=== PATIENT | female | born 2005 | race African-American/Black ===

== ENCOUNTER 2025-01-04 20:16 | Emergency (ER) | payer MEDICAID ==
[~2025-01-04] VITALS: Ht 157.5 cm; Wt 74.6 kg
[2025-01-04 20:22] VITALS: O2SAT 97
[2025-01-04 20:59] LABS: BASOPHILS % 0.4 % (0.0-2.0); EOSINOPHILS % 1.5 % (0.0-5.0); HEMATOCRIT. 34.3 % (36.0-48.0); HEMOGLOBIN. 11.5 g/dL (12.0-16.0); LYMPHOCYTES % 20.1 % (20.0-50.0); MEAN CORPUSCULAR HEMOGLOBIN 29.1 pg (28.0-32.0); MEAN CORPUSCULAR HGB CONC 33.5 g/dL (31.0-37.0); MEAN CORPUSCULAR VOLUME 86.9 fL (81.0-99.0); MEAN PLATELET VOLUME 7.3 fl (7.4-10.4); MONOCYTES % 5.6 % (2.0-8.0); NEUTROPHILS % 72.4 % (40.0-76.0); PLATELET 377 x1000/uL (130-400); RED BLOOD CELL COUNT 3.95 mill/uL (4.2-5.4); WHITE BLOOD COUNT 13.7 x1000/uL (4.5-11.0)
[2025-01-04 21:02] LABS: GLUCOSE URINE NEGATIVE (NEGATIVE); KETONES URINE NEGATIVE (NEGATIVE)
[2025-01-04 21:08] LABS: CHLORIDE 104 mEq/L (98-107); POTASSIUM 3.7 mEq/L (3.5-5.1); SODIUM 137 mEq/L (136-145)
[2025-01-04 21:09] LABS: CALCIUM 9.3 mg/dL (8.7-10.4); CARBON DIOXIDE 22 mEq/L (21-32)
[2025-01-04 21:13] LABS: CLARITY URINE HAZY (CLEAR); COLOR URINE YELLOW (YELLOW); LEUKOCYTE ESTERASE URINE 2+ (NEGATIVE); NITRITE URINE NEGATIVE (NEGATIVE); OCCULT BLOOD URINE 3+ (NEGATIVE); PH URINE 6.5 (4.5-8.0); PROTEIN URINE NEGATIVE (NEGATIVE); SPECIFIC GRAVITY URINE 1.015 (1.005-1.030); UROBILINOGEN URINE 0.2 E.U./dL (0.2-1.0)
[2025-01-04 21:14] LABS: CREATININE 0.7 mg/dL (0.6-1.0); GLUCOSE 138 mg/dL (70-105); UREA NITROGEN BLOOD 7 mg/dL (9-23)
[2025-01-04 21:38] LABS: BACTERIA URINE TRACE; SQUAMOUS EPITHELIAL CELL URINE 1+ /lpf (RARE/1+)
[2025-01-04 21:41] LABS: B-HCG QUANTITATIVE 17058 mIU/mL (<3)
[2025-01-05 03:30] VITALS: BP 106/62; PULSE 100; RESP 28; TEMP 37.1; O2SAT 99
== END 2025-01-05 03:40 | disposition short-term general hospital (02) ==
LOC: ER 20:16
DX: O46.92 Antepartum hemorrhage, unspecified, second trimester (principal); O99.512 Diseases of the respiratory system complicating pregnancy, second trimester; J45.909 Unspecified asthma, uncomplicated; R10.2 Pelvic and perineal pain; Z3A.26 26 weeks gestation of pregnancy
CPT/HCPCS: 36415; 76805; 80048; 81003; 84702; 85025; 86850; 86900; 99285